=== PATIENT | male | born 1975 | race Caucasian/White ===

== ENCOUNTER → 2020-11-04 08:40 | Outpatient (CLI) | payer OTHER, SELFPAY ==
[2020-11-04 09:21] LABS: Add Manual Diff / Slide Review NO; Basophils Absolute Auto 0 /uL (0-100); Basophils Percent Auto 0.6 % (0-2); Eosinophils Absolute Auto 100 /uL (0-450); Eosinophils Percent Auto 1.7 % (2-4); Hematocrit 42.2 % (41-53); Hemoglobin 14.4 g/dL (13.5-17.5); Lymphocytes Absolute Auto 1500 /uL (1100-4500); Lymphocytes Percent Auto 31.6 % (25-40); Mean Corpuscular HGB Conc 34.2 % (30-36); Mean Corpuscular Hemoglobin 30.3 PG (26-34); Mean Corpuscular Volume 88.6 fL (80-100); Monocytes Absolute Auto 400 /uL (0-900); Monocytes Percent Auto 7.4 % (3-14); Neutrophils Absolute Auto 2800 /uL (1500-7000); Neutrophils Percent Auto 58.7 % (50-75); Platelet Count 170 X10^3/uL (150-400); Red Blood Cell Count 4.77 X10^6/uL (4.5-5.9); Red Cell Distribution Width 12.9 % (11.6-14.8); White Blood Cell Count 4.8 X10^3/uL (4.5-11.0)
[2020-11-04 09:48] LABS: Alanine Aminotransferase 22 IU/L (<50); Albumin 4.5 g/dL (3.5-5.0); Albumin Globulin Ratio 1.7 (1.0-2.8); Alkaline Phosphatase 54 U/L (38-126); Aspartate Aminotransferase 43 IU/L (17-59); Bilirubin Total 0.4 mg/dL (0.2-1.3); Blood Urea Nitrogen 20 mg/dL (9-20); Calcium 9.8 mg/dL (8.4-10.2); Carbon Dioxide 31 mmol/L (22-32); Chloride 102 mmol/L (98-107); Cholesterol 209 mg/dL (140-199); Estimated Glomerular Filt Rate > 60.0 mL/min (>60); Globulin 2.7 g/dL (1.7-4.1); Glucose 108 mg/dL (70-100); HDL Cholesterol 64 mg/dL (40-60); HEMOLYSIS < 15 (0-50); LDL Cholesterol Calculated 131 mg/dL (<100); Potassium 4.6 mmol/L (3.4-5.1); Sodium 137 mmol/L (137-145); Total Protein 7.2 g/dL (6.3-8.2); Triglycerides 70 mg/dL (35-150)
== END ==
PROVIDERS: PCP Family Medicine; Referring Provider Family Medicine; Visit Provider Family Medicine
DX: Z13.0 Encounter for screening for diseases of the blood and blood-forming organs and certain disorders involving the immune mechanism (principal); Z13.1 Encounter for screening for diabetes mellitus; Z13.220 Encounter for screening for lipoid disorders
CPT/HCPCS: 36415; 80053; 80061; 85025

== ENCOUNTER → 2021-06-16 15:09 | Outpatient (CLI) | payer OTHER, SELFPAY ==
[2021-06-16 16:08] LABS: COVID19 -Nasal RAPID Negative (Negative)
== END ==
PROVIDERS: PCP Family Medicine; Visit Provider Surgery
DX: Z01.812 Encounter for preprocedural laboratory examination (principal); Z20.822 Contact with and (suspected) exposure to COVID-19
CPT/HCPCS: 87635; C9803

== ENCOUNTER 2021-06-17 08:16 | Day surgery (SDC) | payer OTHER, SELFPAY ==
[2021-06-17 08:28] VITALS: BP 141/72; PULSE 51; RESP 16; TEMP 36.6; O2SAT 98; BMI 25.8
[2021-06-17] MEDS: LACTATED RINGERS 1,000 ML 42 ML IV (08:49)
--- NOTE | 2021-06-17 09:04 | PM.HP.1 ---
History of Present Illness History of Present Illness Date Patient Seen: 06/17/21 Time Patient Seen: 09:04 Chief complaint: SDC Narrative: Colby is a 45-year-old man who is here for a screening colonoscopy. He has no rectal bleeding or melena. No family history but he has a friend that recently from colon cancer. Patient History Family & Social History Family History Grandfather Heart disease Grandmother Heart disease Hypertension High cholesterol Mental health problem Stroke Social History: household members spouse Tobacco & Substance use: Tobacco type cigarettes Smoking Status Former smoker alcohol intake frequency a few times a month Substance Use Type does not use Meds Home Medications and Allergies Home Medications Medication Instructions Recorded Confirmed Type sodium,potassium,mag sulfates 17.5 See Rx Instructions PO .COMPLEX 06/03/21 Rx gram-3.13 gram-1.6 gram oral soln #354 ml (Suprep Bowel Prep Kit) Allergies Allergy/AdvReac Type Severity Reaction Status Date / Time No Known Allergies Allergy Uncoded 11/04/20 10:14 Exam Vital Signs (past 8 hours): - 06/17/21 08:28 Temperature 98 F Pulse Rate 51 L Respiratory Rate 16 Blood Pressure 141/72 H Pulse Oximetry 98 Oxygen Delivery Method Room Air Const General: healthy appearing Resp Effort & Inspection: normal respiratory effort GI Palpation: soft Assessment & Plan Assessment and plan (1) Colon cancer screening: Status: Acute Plan 45-year-old man here for colon cancer screening. We reviewed the risks and benefits of the procedure and he would like to proceed. COVID-19 COVID-19 status: Negative Result date/Date tested (Pos, Neg/Pending): 06/17/21 Time Spent With Patient Critical Care time: I spent a total of [] minutes of critical care time on this patient's care today; this time is exclusive of procedural time.
[2021-06-17] MEDS: fentaNYL 250 MCG/5 ML INJ IV (09:30)
[2021-06-17] MEDS: MIDAZOLAM 5 MG/5 ML VIAL IV (09:30)
[2021-06-17 09:37] VITALS: BP 111/72; PULSE 55; RESP 18; TEMP 36.2; O2SAT 97
--- NOTE | 2021-06-17 09:37 | P.OP.COLON_ITS ---
Operative Date/Time/Diagnoses Date of procedure: 06/17/21 Time of procedure: 09:37 Post-op diagnosis: same Procedure & Clinicians Study performed: Colonoscopy Same procedure as scheduled: Yes Surgeon: Robinson Venegas Procedure Notes SCOAP/Timeout: Yes Procedure in detail: Procedure: The patient was brought to the endoscopy suite, placed in left lateral decubitus position. The patient was connected to monitoring devices. A time-out was performed. Sedation was administered. Once the patient was adequately sedated, a digital rectal exam was performed and was normal. The scope was then inserted and advanced to the cecum where the appendiceal orifice was identified and photographed. The scope was then slowly withdrawn over greater than 6 minutes. Mucosa was thoroughly inspected. There were no polyps or other lesions noted. The scope was retroflexed in the rectum. No abnormalit ies were noted. The scope was straightened and removed. The patient was awakened and brought to recovery. Versed: 8 mg Fentanyl: 150 mcg EBL: 0 Findings: Normal colon Next screening colonoscopy in 10 years Scope withdrawal time: 6 Sedation minutes: 17 Post-procedure Recommendations: Colonoscopy in 10 years Disposition: PACU
[2021-06-17 09:42] VITALS: BP 111/76; PULSE 59; RESP 16; O2SAT 100
[2021-06-17 09:47] VITALS: BP 126/79; PULSE 52; RESP 16; TEMP 36.6; O2SAT 100
[2021-06-17 10:00] VITALS: BP 117/69; PULSE 62; RESP 16; TEMP 36.6; O2SAT 100
== END 2021-06-17 10:20 | disposition home or self-care (01) ==
PROVIDERS: PCP Family Medicine; Referring Provider Surgery; Visit Provider Surgery
PROC: 0DJD8ZZ Inspection of Lower Intestinal Tract, Via Natural or Artificial Opening Endoscopic (ICD-10-PCS; CPT 45378; principal; 2021-06-17 09:30)
DX: Z12.11 Encounter for screening for malignant neoplasm of colon (principal)
CPT/HCPCS: 45378; 99152; J2250; J3010

== ENCOUNTER → 2022-02-18 15:52 | Outpatient (CLI) | payer OTHER, SELFPAY ==
[2022-02-19 06:10] LABS: Hepatitis B Core Antibody Negative (Negative)
[2022-02-21 10:52] LABS: Mumps Virus IgG Antibody <9.0 AU/mL (Immune >10.9)
[2022-02-21 17:27] LABS: Rubella Antibody IgG > 350.0 IU/mL (>15)
== END ==
PROVIDERS: PCP Family Medicine; Referring Provider Physician Assistant; Visit Provider Physician Assistant
DX: Z01.84 Encounter for antibody response examination (principal); Z28.39 Other underimmunization status
CPT/HCPCS: 36415; 86658; 86704; 86735; 86762; 86765

== ENCOUNTER → 2022-02-22 16:42 | Outpatient (CLI) | payer OTHER, SELFPAY ==
[2022-02-25 08:08] LABS: Varicella IgG Antibody 1126 index (Immune >165)
== END ==
PROVIDERS: PCP Family Medicine; Referring Provider Physician Assistant; Visit Provider Physician Assistant
DX: Z01.84 Encounter for antibody response examination (principal)
CPT/HCPCS: 36415; 86787